=== PATIENT | female | born 1980 | race African-American/Black ===

== ENCOUNTER 2016-11-10 16:09 | Emergency (ER) | payer OTHER ==
[~2016-11-10] VITALS: Ht 162.6 cm; Wt 140.6 kg
[2016-11-10 16:32] VITALS: BP 153/94
== END 2016-11-10 18:28 | disposition home or self-care (01) ==
LOC: ER 16:15
DX: J40 Bronchitis, not specified as acute or chronic (principal); J45.909 Unspecified asthma, uncomplicated; I10 Essential (primary) hypertension
CPT/HCPCS: 71020

== ENCOUNTER 2017-02-14 18:27 | Emergency (ER) | payer OTHER ==
[~2017-02-14] VITALS: Ht 162.6 cm; Wt 137.9 kg
[2017-02-14 19:03] LABS: Basophils # (auto) 0 uL; Basophils % (auto) 0.6 % (0.0-2.0); Eosinophils # (auto) 0.3 uL; Eosinophils % (auto) 4.7 % (0.0-7.0); Hematocrit 42.3 % (36.0-46.0); Hemoglobin 14.1 g/dL (12.2-16.2); Lymphocytes # (auto) 2.2 uL; Lymphocytes % (auto) 30.2 % (10.0-50.0); Mean Corpuscular Hemoglobin 28.6 pg (28.0-32.0); Mean Corpuscular Hgb Conc. 33.4 g/dL (32.0-36.0); Mean Corpuscular Volume 85.5 fL (80.0-100.0); Monocytes # (auto) 0.8 uL; Monocytes % (auto) 10.5 % (0.0-12.0); Nucleated Red Blood Cells % 0.1 %; Platelet Count (auto) 208 10^3/uL (140-450); Red Blood Cells 4.95 10^6/uL (4.0-5.20); Red Cell Distribution Width 14.2 % (11.8-14.3); White Blood Cell 7.4 10^3/uL (4.4-10.8)
[2017-02-14 19:21] LABS: Alanine Aminotransferase 26 U/L (13-56); Albumin 3.8 g/dL (3.4-5.0); Alkaline Phosphatase 68 U/L (45-117); Anion Gap 6 (5-15); Aspartate Aminotransferase 13 U/L (15-37); BUN/Creatinine Ratio 9.2; Bilirubin, Total 0.3 mg/dL (0.2-1.0); Blood Urea Nitrogen 10 mg/dL (7-18); Calcium 8.8 mg/dL (8.5-10.1); Carbon Dioxide 29 mmol/L (21-32); Chloride 106 mmol/L (98-107); GFR African American 72 mL/min; GFR Non-African American 60 mL/min; Glucose 91 mg/dL (74-106); Magnesium 2.1 mg/dL (1.6-2.6); Potassium 3.6 mmol/L (3.5-5.1); Sodium 141 mmol/L (136-145); Total Protein 7.8 g/dL (6.4-8.2)
[2017-02-15 04:03] VITALS: BP 144/89
== END 2017-02-15 04:03 | disposition home or self-care (01) ==
LOC: ER 18:27
DX: R07.9 Chest pain, unspecified (principal); J45.909 Unspecified asthma, uncomplicated; I10 Essential (primary) hypertension; Z77.22 Contact with and (suspected) exposure to environmental tobacco smoke (acute) (chronic)
CPT/HCPCS: 36415; 71020; 80053; 83735; 84484; 84702; 85025; 85379

== ENCOUNTER 2017-05-15 19:49 | Emergency (ER) | payer OTHER ==
[~2017-05-15] VITALS: Ht 162.6 cm; Wt 138.3 kg
[2017-05-15] MEDS ORDERED: ALBUTEROL SULF 2.5 MG/0.5ML(0.5%) NEB SOLN NEB ONE (20:15)
[2017-05-15] MEDS ORDERED: IPRATROPIUM BROM 0.5 MG/2.5ML INH SOL NEB ONE (20:15)
[2017-05-15 20:33] LABS: Basophils # (auto) 0 uL; Basophils % (auto) 0.6 % (0.0-2.0); Eosinophils # (auto) 0.3 uL; Eosinophils % (auto) 4.1 % (0.0-7.0); Hematocrit 42.9 % (36.0-46.0); Hemoglobin 14.3 g/dL (12.2-16.2); Lymphocytes # (auto) 0.9 uL; Lymphocytes % (auto) 13.2 % (10.0-50.0); Mean Corpuscular Hemoglobin 28.5 pg (28.0-32.0); Mean Corpuscular Hgb Conc. 33.4 g/dL (32.0-36.0); Mean Corpuscular Volume 85.5 fL (80.0-100.0); Monocytes # (auto) 0.6 uL; Monocytes % (auto) 8.8 % (0.0-12.0); Neutrophils # (auto) 4.9 uL; Neutrophils % (auto) 73.3 % (37.0-80.0); Nucleated Red Blood Cells % 0.1 %; Platelet Count (auto) 200 10^3/uL (140-450); Red Blood Cells 5.02 10^6/uL (4.0-5.20); Red Cell Distribution Width 14.3 % (11.8-14.3); White Blood Cell 6.6 10^3/uL (4.4-10.8)
[2017-05-15 20:51] LABS: Alanine Aminotransferase 27 U/L (13-56); Albumin 3.9 g/dL (3.4-5.0); Alkaline Phosphatase 69 U/L (45-117); Anion Gap 8 (5-15); Aspartate Aminotransferase 15 U/L (15-37); BUN/Creatinine Ratio 10.7; Bilirubin, Total 0.5 mg/dL (0.2-1.0); Blood Urea Nitrogen 12 mg/dL (7-18); Calcium 8.8 mg/dL (8.5-10.1); Carbon Dioxide 29 mmol/L (21-32); Chloride 105 mmol/L (98-107); GFR African American 70 mL/min; GFR Non-African American 58 mL/min; Glucose 88 mg/dL (74-106); Potassium 4.1 mmol/L (3.5-5.1); Sodium 142 mmol/L (136-145)
[2017-05-16] MEDS ORDERED: ACETAMINOPHEN 650 mg PER 20 mL UD PO ONE (00:45)
[2017-05-16] MEDS ORDERED: methylPREDNISolone SOD SUCC 125 MG/2 ML VL ONE (01:06)
[2017-05-16] MEDS ORDERED: methylPREDNISolone SOD SUCC 125 MG/2 ML VL IV ONE (01:15)
[2017-05-16 02:48] VITALS: BP 163/96
== END 2017-05-16 03:02 | disposition home or self-care (01) ==
LOC: ER 19:49
DX: J45.901 Unspecified asthma with (acute) exacerbation (principal); J40 Bronchitis, not specified as acute or chronic; I10 Essential (primary) hypertension; E78.5 Hyperlipidemia, unspecified
CPT/HCPCS: 36415; 71045; 80053; 81025; 83605; 83880; 84484; 85025; 87040; 87400; 93005; 96374; 99285; J2930; J7030

== ENCOUNTER 2017-05-29 19:35 | Emergency (ER) | payer OTHER ==
[~2017-05-29] VITALS: Ht 162.6 cm; Wt 139.0 kg
[2017-05-29 19:40] VITALS: BP 154/91
[2017-05-29 20:04] LABS: Basophils # (auto) 0.1 uL; Basophils % (auto) 0.7 % (0.0-2.0); Eosinophils # (auto) 0.3 uL; Eosinophils % (auto) 3.4 % (0.0-7.0); Hematocrit 40.7 % (36.0-46.0); Hemoglobin 13.4 g/dL (12.2-16.2); Lymphocytes # (auto) 2.2 uL; Lymphocytes % (auto) 26.9 % (10.0-50.0); Mean Corpuscular Hemoglobin 27.9 pg (28.0-32.0); Mean Corpuscular Hgb Conc. 32.9 g/dL (32.0-36.0); Mean Corpuscular Volume 84.7 fL (80.0-100.0); Monocytes # (auto) 0.7 uL; Neutrophils # (auto) 4.8 uL; Nucleated Red Blood Cells % 0.1 %; Platelet Count (auto) 211 10^3/uL (140-450); Red Cell Distribution Width 14.4 % (11.8-14.3)
[2017-05-29 20:21] LABS: INR 0.99 (0.9-1.15); Partial Thromboplastin Time 26.8 sec (22.64-33.71); Prothrombin Time 10.8 sec (9.37-12.3)
[2017-05-29 20:27] LABS: Alanine Aminotransferase 27 U/L (13-56); Albumin 3.7 g/dL (3.4-5.0); Alkaline Phosphatase 58 U/L (45-117); Anion Gap 8 (5-15); Aspartate Aminotransferase 22 U/L (15-37); BUN/Creatinine Ratio 11.2; Bilirubin, Total 0.3 mg/dL (0.2-1.0); Blood Urea Nitrogen 11 mg/dL (7-18); Calcium 8.6 mg/dL (8.5-10.1); Carbon Dioxide 28 mmol/L (21-32); Chloride 106 mmol/L (98-107); GFR African American 81 mL/min; GFR Non-African American 67 mL/min; Glucose 92 mg/dL (74-106); Potassium 3.6 mmol/L (3.5-5.1); Sodium 142 mmol/L (136-145); Total Protein 7.4 g/dL (6.4-8.2)
== END 2017-05-30 05:46 | disposition left against medical advice (07) ==
LOC: ER 19:35
DX: R07.89 Other chest pain (principal); Z53.21 Procedure and treatment not carried out due to patient leaving prior to being seen by health care provider
CPT/HCPCS: 36415; 71046; 80053; 83880; 84443; 84484; 85025; 85610; 85730; 93005

== ENCOUNTER 2018-01-25 00:27 | Emergency (ER) | payer OTHER ==
[~2018-01-25] VITALS: Ht 162.6 cm; Wt 141.1 kg
[2018-01-25 01:09] LABS: Basophils # (auto) 0.1 uL; Basophils % (auto) 0.9 % (0.0-2.0); Eosinophils # (auto) 0.4 uL; Eosinophils % (auto) 4.4 % (0.0-7.0); Hematocrit 40.7 % (36.0-46.0); Hemoglobin 13.5 g/dL (12.2-16.2); Lymphocytes # (auto) 2.2 uL; Lymphocytes % (auto) 26.7 % (10.0-50.0); Mean Corpuscular Hemoglobin 28.2 pg (28.0-32.0); Mean Corpuscular Hgb Conc. 33.3 g/dL (32.0-36.0); Mean Corpuscular Volume 84.9 fL (80.0-100.0); Monocytes # (auto) 0.8 uL; Monocytes % (auto) 9.5 % (0.0-12.0); Neutrophils # (auto) 4.7 uL; Neutrophils % (auto) 58.5 % (37.0-80.0); Nucleated Red Blood Cells % 0.2 %; Platelet Count (auto) 208 10^3/uL (140-450); Red Blood Cells 4.79 10^6/uL (4.0-5.20); Red Cell Distribution Width 14.3 % (11.8-14.3); White Blood Cell 8.1 10^3/uL (4.4-10.8)
[2018-01-25 01:28] LABS: Alanine Aminotransferase 29 U/L (13-56); Albumin 3.6 g/dL (3.4-5.0); Anion Gap 7 (5-15); Aspartate Aminotransferase 19 U/L (15-37); BUN/Creatinine Ratio 9.8; Blood Urea Nitrogen 11 mg/dL (7-18); Calcium 7.9 mg/dL (8.5-10.1); Carbon Dioxide 26 mmol/L (21-32); Chloride 108 mmol/L (98-107); GFR African American 70 mL/min; GFR Non-African American 58 mL/min; Glucose 106 mg/dL (74-106); Magnesium 2.1 mg/dL (1.6-2.6); Potassium 3.6 mmol/L (3.5-5.1); Sodium 141 mmol/L (136-145)
[2018-01-25 01:42] LABS: Alkaline Phosphatase 59 U/L (45-117); Bilirubin, Total 0.2 mg/dL (0.2-1.0); Total Protein 7.5 g/dL (6.4-8.2)
[2018-01-25] MEDS ORDERED: HYDROcodone-ACET 10/325MG TAB PO ONE (03:30)
[2018-01-25 05:04] VITALS: BP 119/72
== END 2018-01-25 06:30 | disposition home or self-care (01) ==
LOC: ER 00:27
DX: R07.89 Other chest pain (principal); R09.1 Pleurisy; J45.909 Unspecified asthma, uncomplicated; E78.5 Hyperlipidemia, unspecified; I10 Essential (primary) hypertension; Z77.22 Contact with and (suspected) exposure to environmental tobacco smoke (acute) (chronic)
CPT/HCPCS: 36415; 71045; 80053; 83735; 83880; 84443; 84484; 85025; 93005

== ENCOUNTER 2018-10-01 13:08 | Emergency (ER) | payer OTHER ==
[~2018-10-01] VITALS: Ht 162.6 cm; Wt 136.5 kg
[2018-10-01 13:53] LABS: Basophils # (auto) 0 uL; Basophils % (auto) 0.7 % (0.0-2.0); Eosinophils # (auto) 0.4 uL; Eosinophils % (auto) 7.5 % (0.0-7.0); Hematocrit 38.8 % (36.0-46.0); Hemoglobin 12.7 g/dL (12.2-16.2); Lymphocytes # (auto) 1.5 uL; Lymphocytes % (auto) 27.7 % (10.0-50.0); Mean Corpuscular Hemoglobin 27.9 pg (28.0-32.0); Mean Corpuscular Hgb Conc. 32.7 g/dL (32.0-36.0); Mean Corpuscular Volume 85.4 fL (80.0-100.0); Monocytes # (auto) 0.4 uL; Monocytes % (auto) 6.7 % (0.0-12.0); Neutrophils % (auto) 57.4 % (37.0-80.0); Platelet Count (auto) 192 10^3/uL (140-450); Red Blood Cells 4.54 10^6/uL (4.0-5.20); Red Cell Distribution Width 14.7 % (11.8-14.3); White Blood Cell 5.3 10^3/uL (4.4-10.8)
[2018-10-01 14:09] LABS: Urine Bacteria NONE SEEN /hpf (None Seen); Urine Blood 2+ /uL (Negative); Urine Mucus FEW (None Seen); Urine Specific Gravity 1.029 (1.001-1.035); Urine WBC 1 /hpf (0 - 5)
[2018-10-01 14:11] LABS: Albumin 3.4 g/dL (3.4-5.0); Calcium 8.2 mg/dL (8.5-10.1); Potassium 3.5 mmol/L (3.5-5.1)
[2018-10-01 14:14] LABS: Bilirubin, Total 0.4 mg/dL (0.2-1.0); Total Protein 6.9 g/dL (6.4-8.2)
[2018-10-01 14:18] LABS: INR 0.98 (0.9-1.15)
[2018-10-01] MEDS ORDERED: KETOROLAC TROMETH 60MG/2ML VIAL IM ONE (18:15)
[2018-10-01 18:24] VITALS: BP 117/71
== END 2018-10-01 18:49 | disposition home or self-care (01) ==
LOC: ER 13:11
DX: D25.9 Leiomyoma of uterus, unspecified (principal); N93.9 Abnormal uterine and vaginal bleeding, unspecified; R51 Headache; J45.909 Unspecified asthma, uncomplicated; E78.5 Hyperlipidemia, unspecified
CPT/HCPCS: 36415; 76830; 76856; 80053; 81001; 81025; 85025; 85610; 85730; 96372; 99284; J1885

== ENCOUNTER 2019-01-31 21:16 | Emergency (ER) | payer OTHER ==
[~2019-01-31] VITALS: Ht 162.6 cm; Wt 133.8 kg
[2019-02-01] MEDS ORDERED: DexAMETHasone SOD PHOS 10MG/1ML VIAL INJ IM ONE (00:30)
[2019-02-01] MEDS ORDERED: cefTRIAXone SOD 1,000 MG VL IM ONE (00:30)
[2019-02-01 01:04] VITALS: BP 138/94
== END 2019-02-01 01:27 | disposition home or self-care (01) ==
LOC: ER 21:16
DX: J06.9 Acute upper respiratory infection, unspecified (principal); Z76.5 Malingerer [conscious simulation]; J45.909 Unspecified asthma, uncomplicated; E78.5 Hyperlipidemia, unspecified; I10 Essential (primary) hypertension; F20.9 Schizophrenia, unspecified; Z77.22 Contact with and (suspected) exposure to environmental tobacco smoke (acute) (chronic)
CPT/HCPCS: 71045; 96372; 99283; J0696; J1100

== ENCOUNTER 2019-05-03 09:24 | Emergency (ER) | payer OTHER ==
[~2019-05-03] VITALS: Ht 162.6 cm; Wt 134.7 kg
[2019-05-03] MEDS ORDERED: IPRATROPIUM BROM 0.5 MG/2.5ML INH SOL NEB ONE (11:45)
[2019-05-03] MEDS ORDERED: ALBUTEROL SULF 2.5 MG/0.5ML(0.5%) NEB SOLN NEB ONE (11:45)
[2019-05-03] MEDS ORDERED: methylPREDNISolone SOD SUCC 125 MG/2 ML VL IM ONE (11:45)
[2019-05-03 12:28] VITALS: BP 144/78
== END 2019-05-03 12:38 | disposition home or self-care (01) ==
LOC: ER 09:24
DX: J20.9 Acute bronchitis, unspecified (principal); J45.909 Unspecified asthma, uncomplicated; E78.5 Hyperlipidemia, unspecified; I10 Essential (primary) hypertension
CPT/HCPCS: 71046; 94640; 96372; 99283; J2930; J7611; J7644

== ENCOUNTER 2020-09-22 20:52 | Emergency (ER) | payer OTHER ==
[~2020-09-22] VITALS: Ht 162.6 cm; Wt 146.5 kg
[2020-09-23 03:29] LABS: Urine Bacteria NONE SEEN /hpf (None Seen); Urine Blood Negative /uL (Negative); Urine Mucus FEW (None Seen); Urine Specific Gravity 1.025 (1.001-1.035); Urine WBC 1 /hpf (0 - 5)
[2020-09-23] MEDS ORDERED: KETOROLAC TROMETH 60MG/2ML VIAL IM ONE (04:15)
[2020-09-23 04:30] VITALS: BP 156/87
== END 2020-09-23 04:41 | disposition home or self-care (01) ==
LOC: ER 20:52
DX: S39.012A Strain of muscle, fascia and tendon of lower back, initial encounter (principal); I10 Essential (primary) hypertension; E78.5 Hyperlipidemia, unspecified; X58.XXXA Exposure to other specified factors, initial encounter; Y93.89 Activity, other specified; Y92.89 Other specified places as the place of occurrence of the external cause; Y99.8 Other external cause status
CPT/HCPCS: 72100; 81001; 96372; 99284; J1885

== ENCOUNTER 2020-12-08 17:24 | Emergency (ER) | payer OTHER ==
[~2020-12-08] VITALS: Ht 162.6 cm; Wt 237.7 kg
[2020-12-08 19:14] LABS: Basophils # (auto) 0 10 ^3/uL (0-0.2); Basophils % (auto) 0.7 % (0.0-2.0); Eosinophils # (auto) 0.4 10 ^3/uL (0-0.8); Eosinophils % (auto) 5.6 % (0.0-7.0); Hematocrit 42.5 % (36.0-46.0); Lymphocytes # (auto) 1.6 10 ^3/uL (0.4-5.4); Lymphocytes % (auto) 24.2 % (10.0-50.0); Mean Corpuscular Hemoglobin 27.8 pg (28.0-32.0); Mean Corpuscular Volume 84.4 fL (80.0-100.0); Monocytes # (auto) 0.6 10 ^3/uL (0-1.3); Monocytes % (auto) 9.6 % (0.0-12.0); Neutrophils # (auto) 3.8 10 ^3/uL (1.6-8.6); Neutrophils % (auto) 59.9 % (37.0-80.0); Nucleated Red Blood Cells % 0.2 %; Red Blood Cells 5.03 10^6/uL (4.0-5.20); Red Cell Distribution Width 14.5 % (11.8-14.3); White Blood Cell 6.4 10^3/uL (4.4-10.8)
[2020-12-08 19:27] LABS: Alanine Aminotransferase 29 U/L (13-56); Albumin 3.7 g/dL (3.4-5.0); Anion Gap 4 (5-15); BUN/Creatinine Ratio 14.1; Blood Urea Nitrogen 13 mg/dL (7-18); Calcium 8.6 mg/dL (8.5-10.1); Carbon Dioxide 28 mmol/L (21-32); Chloride 108 mmol/L (98-107); GFR African American 86 mL/min; GFR Non-African American 71 mL/min; Glucose 78 mg/dL (74-106); Magnesium 2.1 mg/dL (1.6-2.6); Potassium 3.8 mmol/L (3.5-5.1); Sodium 140 mmol/L (136-145)
[2020-12-08 19:39] LABS: Alkaline Phosphatase 65 U/L (45-117); Aspartate Aminotransferase 22 U/L (15-37); Bilirubin, Total 0.4 mg/dL (0.2-1.0); Total Protein 7.5 g/dL (6.4-8.2)
[2020-12-09] MEDS ORDERED: ACETAMINOPHEN 500 MG TAB PO ONE (03:00)
[2020-12-09 03:11] VITALS: BP 137/55
== END 2020-12-09 04:19 | disposition home or self-care (01) ==
LOC: ER 17:24
DX: I16.0 Hypertensive urgency (principal); R51.9 Headache, unspecified; J45.909 Unspecified asthma, uncomplicated; E78.5 Hyperlipidemia, unspecified; I10 Essential (primary) hypertension
CPT/HCPCS: 36415; 70450; 71045; 80053; 83735; 84484; 85025; 93005